=== PATIENT | female | born 1960 | race Caucasian/White ===

== ENCOUNTER 2019-05-18 20:44 | Outpatient (CLI) | payer BC | END 2019-05-19 06:34 | disposition home or self-care (01) | LOC: SLEEP 20:44 | PROVIDERS: ATTEND Nurse Practitioner Family | DX: G47.00 Insomnia, unspecified (principal); G47.30 Sleep apnea, unspecified | CPT/HCPCS: 95811 ==

== ENCOUNTER 2019-07-13 16:47 | Observation (INO) | payer BC ==
[~2019-07-13] VITALS: Ht 157.5 cm; Wt 110.6 kg
[2019-07-13] MEDS ORDERED: ONDANSETRON 4 MG/2 ML (SDV) Z0FRAN IVP ONE (17:00)
[2019-07-13] MEDS ORDERED: NITROGLYCERIN 0.4 MG SL TABS BTL 25'S SL PRN ×2 (17:00→20:30)
[2019-07-13] MEDS ORDERED: ANTACID SUSP 30 ML UDC (MYLANTA) PO ONE (17:00)
[2019-07-13] MEDS ORDERED: ASPIRIN 81 MG CHEW (CHILDREN'S ASA) PO ONE (17:00)
[2019-07-13] MEDS ORDERED: LIDOCAINE 2% VISCOUS 15 ML UDC PO ONE (17:00)
--- NOTE | 2019-07-13 17:09 | ED General ---
General Chief Complaint: Chest Pain Stated Complaint: CHEST PAIN History of Present Illness Date Seen by Provider: Jul 13, 2019 Time Seen by Provider: 17:05 Initial Comments Patient presenting to emergency department for evaluation of chest pain that she says started approximately 10 minutes prior to arrival she was at rest watching TV. She said she did recently eat. She denies any recent activity. She says the pain is in the center of her chest achy radiates towards the back as well as bilateral arms. She says she has some nausea and shortness of breath but no vomiting or diaphoresis. She has a history of A. fib and takes a baby aspirin daily as well as metoprolol. Patient also takes medications for elevated cholesterol. She says she had an echocardiogram 2-3 months ago for monitoring of her A. fib and she said it was normal. She denies any prior cardiac risk stratification such as a stress test or heart catheterization. She did have ablation for her A. fib 2 or 3 years ago however she says she has been having intermittent episodes of A. fib over the past 2-3 months. She appears anxious but nontoxic with normal vital signs. (CARIE HEARD DO) Allergies and Home Medications Allergies Coded Allergies: erythromycin base (Verified Allergy, Unknown, 07/13/19) fentanyl (Verified Allergy, Unknown, 07/13/19) tetracycline (Verified Allergy, Unknown, 07/13/19) Patient Home Medication List Home Medication List Reviewed: Yes (CARIE HEARD DO) Review of Systems Review of Systems Constitutional: no symptoms reported EENTM: no symptoms reported Respiratory: short of breath Cardiovascular: chest pain Gastrointestinal: nausea Genitourinary: no symptoms reported Musculoskeletal: back pain Skin: no symptoms reported Psychiatric/Neurological: No Symptoms Reported (CARIE HEARD DO) All Other Systems Reviewed Negative Unless Noted: Yes (CARIE HEARD DO) Past Ycjxsxx-Vsezna-Ptcrjn Hx Patient Social History Recent Foreign Travel: No (CARIE HEARD DO) Physical Exam Vital Signs Capillary Refill : (CARIE HEARD DO) Height, Weight, BMI Height: '" Weight: lbs. oz. kg; BMI Method: General Appearance: No Apparent Distress, WD/WN, Anxious HEENT: PERRL/EOMI Neck: Supple Respiratory: Lungs Clear, No Respiratory Distress Cardiovascular: Regular Rate, Rhythm Gastrointestinal: Non Tender, Soft Back: Normal Inspection Extremity: No Pedal Edema Neurologic/Psychiatric: Alert, Oriented x3 Skin: Warm/Dry (CARIE HEARD ) Progress/Results/Core Measures Suspected Sepsis SIRS Temperature: Pulse: Respiratory Rate: Laboratory Tests 07/13/19 17:20: White Blood Count 10.1 Blood Pressure / Mean: Laboratory Tests 07/13/19 17:20: Platelet Count 277 ([facility]) Results/Orders Lab Results Laboratory Tests Test 07/13/19 17:20 Range/Units White Blood Count 10.1 4.3-11.0 10^3/uL Red Blood Count 4.62 4.35-5.85 10^6/uL Hemoglobin 13.5 11.5-16.0 G/DL Hematocrit 43 35-52 % Mean Corpuscular Volume 92 80-99 FL Mean Corpuscular Hemoglobin 29 25-34 PG Mean Corpuscular Hemoglobin Concent 32 32-36 G/DL Red Cell Distribution Width 12.7 10.0-14.5 % Platelet Count 277 130-400 10^3/uL Mean Platelet Volume 10.7 H 7.4-10.4 FL Neutrophils (%) (Auto) 60 42-75 % Lymphocytes (%) (Auto) 31 12-44 % Monocytes (%) (Auto) 7 0-12 % Eosinophils (%) (Auto) 2 0-10 % Basophils (%) (Auto) 4 0-10 % Neutrophils # (Auto) 6.0 1.8-7.8 X 10^3 Lymphocytes # (Auto) 3.1 1.0-4.0 X 10^3 Monocytes # (Auto) 0.7 0.0-1.0 X 10^3 Eosinophils # (Auto) 0.2 0.0-0.3 10^3/uL Basophils # (Auto) 0.0 0.0-0.1 10^3/uL D-Dimer 0.27 0.00-0.49 UG/ML Sodium Level 142 135-145 MMOL/L Potassium Level 4.4 3.6-5.0 MMOL/L Chloride Level 106 98-107 MMOL/L Carbon Dioxide Level 27 21-32 MMOL/L Anion Gap 9 5-14 MMOL/L Blood Urea Nitrogen 13 7-18 MG/DL Creatinine 0.83 0.60-1.30 MG/DL Estimat Glomerular Filtration Rate > 60 BUN/Creatinine Ratio 16 Glucose Level 133 H 70-105 MG/DL Calcium Level 9.5 8.5-10.1 MG/DL Corrected Calcium 9.5 8.5-10.1 MG/DL Magnesium Level 2.2 1.6-2.4 MG/DL Total Bilirubin 0.3 0.1-1.0 MG/DL Aspartate Amino Transf (AST/SGOT) 19 5-34 U/L Alanine Aminotransferase (ALT/SGPT) 18 0-55 U/L Alkaline Phosphatase 103 40-136 U/L Troponin I < 0.30 <0.30 NG/ML Pro-B-Type Natriuretic Peptide 850.7 H <75.0 PG/ML Total Protein 6.8 6.4-8.2 GM/DL Albumin 4.0 3.2-4.5 GM/DL Lipase 40 8-78 U/L (ERWIN PATIÑO MD) Medications Given in ED Current Medications Medications Dose Ordered Sig/Reuben Route Start Time Stop Time Status Last Admin Dose Admin Al Hydrox/Mg Hydrox/Simethicone 30 ml ONCE ONCE PO 07/13/19 17:00 07/13/19 17:01 DC 07/13/19 17:23 30 ML Aspirin 324 mg ONCE ONCE PO 07/13/19 17:00 07/13/19 17:01 DC 07/13/19 17:22 243 MG Lidocaine HCl 5 ml ONCE ONCE PO 07/13/19 17:00 07/13/19 17:01 DC 07/13/19 17:23 5 ML Nitroglycerin 0.4 mg NEEDED PRN SL 07/13/19 17:00 07/13/19 17:27 0.4 MG Ondansetron HCl 4 mg ONCE ONCE IVP 07/13/19 17:00 07/13/19 17:01 DC 07/13/19 17:23 4 MG (ERWIN PATIÑO MD) Vital Signs/I&O Capillary Refill : (CARIE HEARD DO) Progress Note : Progress Note Patient with chest pain that is atypical for ACS in my opinion. Her EKG does not show any obvious ischemic changes. I will check a chest x-ray basic lab work treat symptoms and reassess. Will transfer of care at 1800 (CARIE HEARD DO) Progress Note : Time: 18:44 Progress Note Patient was nondiagnostic. First troponin is negative. Symptoms resolved after one nitroglycerin and she remains pain-free. Symptoms are suggestive of angina. I think she needs inpatient workup. I spoke with Dr. Santiago and Dr. Adrian who agreed to admit at [facility]. Low blood pressure precludes any further nitroglycerin or beta blockade. (ERWIN PATIÑO MD) Departure Communication (Admissions) Time/Spoke to Admitting Phy: 18:46 Case was discussed with Dr. Santiago and Dr. Adrian (ERWIN PATIÑO MD) Impression Primary Impression: Chest pain Disposition: 09 ADMITTED INPATIENT Condition: Improved Admissions Decision to Admit Reason: Admit from ER (General) Decision to Admit/Date: Jul 13, 2019 Time/Decision to Admit Time: 18:46 (ERWIN PATIÑO MD) Departure-Patient Inst. Referrals: ANUP SANON DO (PCP/Family) Primary Care Physician CARIE HEARD DO Jul 13, 2019 17:09 POSTAYLORERWIN MD Jul 13, 2019 18:47 POS
[2019-07-13 17:32] LABS: WHITE BLOOD COUNT 10.1 10^3/uL (4.3-11.0)
[2019-07-13 17:33] LABS: BASOPHILS % (AUTO) 4 % (0-10); EOSINOPHILS # (AUTO) 0.2 10^3/uL (0.0-0.3); EOSINOPHILS % (AUTO) 2 % (0-10); HEMATOCRIT 43 % (35-52); HEMOGLOBIN 13.5 G/DL (11.5-16.0); LYMPHOCYTES # (AUTO) 3.1 X 10^3 (1.0-4.0); LYMPHOCYTES % (AUTO) 31 % (12-44); MEAN CORPUSCULAR HEMOGLOBIN 29 PG (25-34); MEAN CORPUSCULAR HGB CONC 32 G/DL (32-36); MEAN CORPUSCULAR VOLUME 92 FL (80-99); MEAN PLATELET VOLUME 10.7 FL (7.4-10.4); MONOCYTES # (AUTO) 0.7 X 10^3 (0.0-1.0); MONOCYTES % (AUTO) 7 % (0-12); NEUTROPHILS % (AUTO) 60 % (42-75); PLATELET COUNT 277 10^3/uL (130-400); RED CELL DISTRIBUTION WIDTH 12.7 % (10.0-14.5)
--- NOTE | 2019-07-13 17:49 | Diagnostic Imaging Report ---
Patient History: Chest pain.. Technique: Single frontal view of the chest Comparison: None FINDINGS: The lung volumes are normal. No focal consolidation is seen. No large pleural effusion or pneumothorax is seen. The cardiomediastinal silhouette is normal in size and contour. No acute osseous abnormality is seen. IMPRESSION: 1. No acute pleuroparenchymal process. Dictated by: Dictated on workstation # [id number]
[2019-07-13 18:04] LABS: BUN/CREATININE RATIO 16; CALCIUM 9.5 MG/DL (8.5-10.1); CARBON DIOXIDE 27 MMOL/L (21-32); CHLORIDE 106 MMOL/L (98-107); CREATININE SERUM 0.83 MG/DL (0.60-1.30); GFR ESTIMATED > 60; GLUCOSE 133 MG/DL (70-105); MAGNESIUM 2.2 MG/DL (1.6-2.4); POTASSIUM 4.4 MMOL/L (3.6-5.0); SODIUM 142 MMOL/L (135-145)
[2019-07-13 18:05] LABS: ALANINE AMINOTRANSFERASE 18 U/L (0-55); ALKALINE PHOSPHATASE 103 U/L (40-136); BILIRUBIN,TOTAL 0.3 MG/DL (0.1-1.0); LIPASE 40 U/L (8-78); TOTAL PROTEIN 6.8 GM/DL (6.4-8.2)
[2019-07-13] MEDS: NS IV 500 ML 500 ML IV SCH (18:07)
--- NOTE | 2019-07-13 18:10 | NUR ---
Reported blood pressure in 80's systolic to Dr Hooper. Orders received for 500 ml fluid bolus of NS.
--- NOTE | 2019-07-13 18:49 | NUR ---
Called supervisor paper testing to request bed assignment at this time.
--- NOTE | 2019-07-13 19:29 | NUR ---
Reported BP of 85/[address] Hooper at this time. No new orders received.
[2019-07-13] MEDS ORDERED: ONDANSETRON 4 MG/2 ML (SDV) Z0FRAN IVP PRN (20:30)
[2019-07-13] MEDS ORDERED: PATIENT MAY USE OWN MEDS, ALL PO SCH (20:30)
[2019-07-13 20:32] VITALS: BP 90/63
[2019-07-13 20:45] VITALS: BP 110/73
[2019-07-13] MEDS ORDERED: ACETAMINOPHEN 325 MG TABLET PO PRN (20:45)
[2019-07-13] MEDS ORDERED: BENZONATATE 100 MG (TESSALON) CAPSULE PO PRN (20:45)
[2019-07-13] MEDS ORDERED: ONDANSETRON 4 MG/2 ML (SDV) Z0FRAN IV PRN (20:45)
[2019-07-13] MEDS ORDERED: MILK OF MAGNESIA 400 MG/5 ML 30 ML UDC PO PRN (20:45)
[2019-07-13] MEDS ORDERED: ANTACID SUSP 30 ML UDC (MYLANTA) PO PRN (20:45)
[2019-07-13] MEDS ORDERED: MELATONIN 3 MG TABLET PO PRN (20:45)
[2019-07-13 21:00] VITALS: BP 98/51
[2019-07-13 21:15] VITALS: BP 112/68
[2019-07-13 22:00] VITALS: BP 102/45
[2019-07-13 23:00] VITALS: BP 124/70
[2019-07-14] VITALS (18 sets, daily range): BP systolic 84–139; BP diastolic 47–91
[2019-07-14] MEDS: NS IV 500 ML 500 ML IV SCH (02:28)
[2019-07-14 03:42] LABS: CARDIAC PROFILE 2 0.519 NG/ML (<0.028)
[2019-07-14] MEDS: ASPIRIN E.C. 81 MG (ECOTRIN) TAB PO SCH (09:00)
--- NOTE | 2019-07-14 09:39 | History & Physical-Hospitalist ---
History of Present Illness HPI/Chief Complaint This is a 59-year-old white female with a history of atrial fibrillation and ablation in the past. She was doing fairly well and was sitting in her chair watching TV when she began having chest pain that radiated to both shoulders up and to her right jaw. She then presented to the emergency room in [place] where she was given a GI cocktail without resolution and then some nitroglycerin which resolved the pain. She was transferred here to [facility] for further evaluation. Overnight she has been pain free however her troponin has increased to 0.519. EKG showed a sinus bradycardia with a rate in the 30s without ST segment changes. She had been having a little bit of trouble more recently with the atrial fibrillation. She denies having had any exertional chest pain or symptoms ever similar to the one she had last night. Source: patient Exam Limitations: no limitations Date Seen 07/14/19 Time Seen by a Provider: 08:45 Attending Physician Ting Akins Ricky D DO Referring Physician Date of Admission Jul 13, 2019 at 19:01 Home Medications & Allergies Home Medications Reviewed patient Home Medication Reconciliation performed by pharmacy medication reconciliations marine propulsion technician and/or nursing. Patients Allergies have been reviewed. Allergies Allergies Coded Allergies erythromycin base (Verified Allergy, Unknown, 07/13/19) fentanyl (Verified Allergy, Unknown, 07/13/19) tetracycline (Verified Allergy, Unknown, 07/13/19) Past Qkmdgoe-Hoalib-Runwgt Hx Past Med/Social Hx: Reviewed Nursing Past Med/Soc Hx Patient Social History Marrital Status: Employed/Student: employed Alcohol Use: Denies Use Recreational Drug Use: No Smoking Status: Never a Smoker 2nd Hand Smoke Exposure: No Recent Foreign Travel: No Contact w/other who traveled: No Recent Hopitalizations: No Recent Infectious Disease Expo: No Seasonal Allergies Seasonal Allergies: No Past Medical History Surgeries: Section, Gallbladder Respiratory: Sleep Apnea Cardiac: Atrial Fibrillation, High Cholesterol, Hypotension Endocrine: Hypothyroidsim History of Blood Disorders: No Adverse Reaction to Blood Mcnulty: No Family History Heart Disease Review of Systems Constitutional: no symptoms reported EENTM: no symptoms reported Respiratory: no symptoms reported Cardiovascular: chest pain, palpitations Gastrointestinal: no symptoms reported Genitourinary: no symptoms reported Musculoskeletal: no symptoms reported Skin: no symptoms reported Psychiatric/Neurological: No Symptoms Reported Physical Exam Physical Exam Vital Signs Vital Signs - First Documented 07/13/19 07/13/19 16:50 20:32 Temp 36.4 Pulse 56 Resp 14 B/P (MAP) 120/72 (88) Pulse Ox 98 O2 Delivery Room Air Capillary Refill : Less Than 3 Seconds Height, Weight, BMI Height: '" Weight: lbs. oz. kg; 46.11 BMI Method: General Appearance: No Apparent Distress, WD/WN, Obese Eyes: Bilateral Eye Normal Inspection HEENT: PERRL/EOMI, Normal ENT Inspection, Pharynx Normal Neck: Full Range of Motion, Normal Inspection, Non Tender, Supple Respiratory: Chest Non Tender, Lungs Clear, Normal Breath Sounds, No Accessory Muscle Use, No Respiratory Distress Cardiovascular: Regular Rate, Rhythm, No Edema, No Gallop, No JVD, No Murmur, Normal Peripheral Pulses, Bradycardia Gastrointestinal: Normal Bowel Sounds, No Organomegaly, No Pulsatile Mass, Soft Rectal: Deferred Back: Normal Inspection, No CVA Tenderness, No Vertebral Tenderness Extremity: Normal Capillary Refill, Normal Inspection, Normal Range of Motion, Non Tender, No Calf Tenderness Neurologic/Psychiatric: Alert, Oriented x3, No Motor/Sensory Deficits, Normal Mood/Affect Skin: Normal Color, Warm/Dry Results Results/Procedures Labs Laboratory Tests 07/13/19 17:20 Patient resulted labs reviewed. Imaging: Reviewed Imaging Report Assessment/Plan Admission Diagnosis Non-ST segment elevation MS Atrial fibrillation in sinus Sinus bradycardia Hyperlipidemia Hypothyroidism Obstructive sleep apnea on CPAP Plan per cardiology most likely will need heart catheter. Admission Status: Observation Clinical Quality Measures AMI/AHF: ASA po Prior to arrival: Yes (takes 81 mg aspirin daily) DVT/VTE Risk/Contraindication: Risk Factor Score Per Nursin RFS Level Per Nursing on Admit: 4+=Very High Copy Copies To 1: ANUP SANON KATHLEEN M MD Jul 14, 2019 09:39 POS
--- NOTE | 2019-07-14 10:13 | Consultation-Cardiology ---
HPI-Cardiology Cardiology Consultation: Date of Consultation 07/14/19 Time Seen by a Provider: 09:50 Date of Admission Attending Physician Trish Santiago MD Admitting Physician Dmitriy Atkinson DO Consulting Physician AMANDA RUIZ MD, MA, FACP, FACC, FSCAI, CCDS HPI: Chief Complaint: CC: Chest pain HPI 59 yo woman with chest discomfort: 1st and only occurrence yesterday, lasted 10 min, resolved by the time of presentation to ER, mid-chest, heavy pressure, radiation to shoulders and neck, w/o palp or syncope, w/o aggravating or relieving factors, mod-sev in intensity at its worst No shortness of breath. No palp or syncope. No leg swelling. No fever or chills Review of Systems-Cardiology Review of Systems Constitutional: No malaise, No tiredness, No weight loss Eyes: No vision change Ears/Nose/Throat: No ear discharge, No nasal drainage, No recent hearing loss Respiratory: As described under HPI Cardiovascular: As described under HPI Gastrointestinal: No diarrhea, No vomiting Genitourinary: No dysuria, No hematuria, No urine frequency changes Musculoskeletal: No back pain, No joint pain Skin: No rash, No ulcerations Psychiatric/Neurological: No seizure, No focal weakness, No syncope Hematologic: No bleeding abnormalities All Other Systems Reviewed Negative Unless Noted: Yes WBA-Oswbur-Apxyjq Hx Patient Social History Marrital Status: Employed/Student: employed Alcohol Use: Denies Use Recreational Drug Use: No Smoking Status: Never a Smoker 2nd Hand Smoke Exposure: No Recent Foreign Travel: No Recent Infectious Disease Expo: No Past Medical History PMH As described under Assessment. Family Medical History Family Medical History: No fam h/o early CAD or SCD Allergies and Home Medications Allergies Coded Allergies: erythromycin base (Verified Allergy, Unknown, 07/13/19) fentanyl (Verified Allergy, Unknown, 07/13/19) tetracycline (Verified Allergy, Unknown, 07/13/19) Patient Home Medication List Home Medication List Reviewed: Yes Physical Exam-Cardiology Physical Exam Vital Signs/I&O 07/13/19 07/14/19 07/14/19 07/14/19 23:00 00:00 00:00 00:55 Temp 36.1 Pulse 52 52 Resp 18 B/P (MAP) 124/70 (88) 115/68 (84) 111/73 (86) Pulse Ox 100 O2 Delivery Room Air Room Air 07/14/19 07/14/19 07/14/19 07/14/19 01:00 03:11 04:00 07:00 Temp 36.2 Pulse 52 40 48 Resp 18 B/P (MAP) 84/47 (59) Pulse Ox 100 O2 Delivery Room Air Room Air 07/14/19 00:00 Intake Total 1050 ml Output Total 400 ml Balance 650 ml Capillary Refill : Less Than 3 Seconds Constitutional: AAO x 3, well-developed, well-nourished HEENT: EOMI, hearing is well preserved; No xanthelasmas are seen Neck: carotid pulses are 2 + bilaterally, with good upstrokes Cardiovascular: regular rate-rhythm, S1 and S2, systolic murmur (faint TAMMY at card base) Gastrointestinal: No tender; soft; No guarding, No rebound; audible bowel sounds Extremities: No clubbing, No cyanosis, No significant edema Neurologic/Psychiatric: oriented x 3, other (moves all limbs equally) Skin: No rash, No ulcerations Data Review Labs Laboratory Tests 07/13/19 17:20: White Blood Count 10.1, Red Blood Count 4.62, Hemoglobin 13.5, Hematocrit 43, Mean Corpuscular Volume 92, Mean Corpuscular Hemoglobin 29, Mean Corpuscular Hemoglobin Concent 32, Red Cell Distribution Width 12.7, Platelet Count 277, Mean Platelet Volume 10.7H, Neutrophils (%) (Auto) 60, Lymphocytes (%) (Auto) 31, Monocytes (%) (Auto) 7, Eosinophils (%) (Auto) 2, Basophils (%) (Auto) 4, Neutrophils # (Auto) 6.0, Lymphocytes # (Auto) 3.1, Monocytes # (Auto) 0.7, Eosinophils # (Auto) 0.2, Basophils # (Auto) 0.0, D-Dimer 0.27, Sodium Level 142 , Potassium Level 4.4, Chloride Level 106, Carbon Dioxide Level 27, Anion Gap 9, Blood Urea Nitrogen 13, Creatinine 0.83, Estimat Glomerular Filtration Rate > 60, BUN/Creatinine Ratio 16, Glucose Level 133H, Calcium Level 9.5, Corrected Calcium 9.5, Magnesium Level 2.2, Total Bilirubin 0.3, Aspartate Amino Transf (AST/SGOT) 19, Alanine Aminotransferase (ALT/SGPT) 18, Alkaline Phosphatase 103, Troponin I < 0.30, Pro-B-Type Natriuretic Peptide 850.7H, Total Protein 6.8, Albumin 4.0, Lipase 40 07/13/19 20:45: Troponin I 0.045H 07/14/19 02:42: Troponin I 0.519*H, Triglycerides Level 60, Cholesterol Level 130, LDL Cholesterol Direct 78, VLDL Cholesterol 12, HDL Cholesterol 42 Laboratory Tests 07/13/19 17:20 A/P-Cardiology Assessment/Admission Diagnosis Ac NSTEMI PAF treated with ablation at [facility] (Dr Love) several years ago Chronic hypothyroidism of undetermined etiology Obesity with BMI approx 46 NAYELI, treated with CPAP Discussion and Recomendations * Card cath recommended, with possible ad hoc PCI. I reviewed in detail the rationale, procedure, risks, benefits, potential complications, and alternatives of these procedures with her and her . She understands and provides informed consent. Arrangements are being made Clinical Quality Measures AMI/AHF: ASA po Prior to arrival: Yes (takes 81 mg aspirin daily) DVT/VTE Risk/Contraindication: Risk Factor Score Per Nursin RFS Level Per Nursing on Admit: 4+=Very High AMANDA RUIZ MD FACP FAC CCDS Jul 14, 2019 10:13 POS
[2019-07-14] MEDS ORDERED: HEParin (CATH LAB) 2,000 ML IV ONE (10:37)
[2019-07-14] MEDS ORDERED: LIDOCAINE 1% INJ 20 ML 20 ML VIAL ONE (10:37)
[2019-07-14] MEDS ORDERED: diphenhydrAMINE 50 MG/ML INJ (BENADRYL) ONE (10:48)
[2019-07-14] MEDS ORDERED: MIDAZOLAM 5 MG/5 ML (VERSED) VIAL ONE (10:48)
[2019-07-14] MEDS ORDERED: NS IV 1000 ML 1,000 ML ONE (10:48)
[2019-07-14] MEDS: NS IV 1000 ML 1,000 ML IV SCH ×2 (11:00→23:18)
--- NOTE | 2019-07-14 11:00 | NUR ---
PATIENT TO OCCUPATIONAL HEALTH SPECIALIST VIA BED, ACCOMPANIED BY STAFF AND .
--- NOTE | 2019-07-14 11:35 | Cardiac Procedure Note-CS/ASA ---
Pre-Procedure Note Pre-Op Procedure Note H&P Reviewed The H&P was reviewed, patient examined and no changes noted. Date H&P Reviewed: Jul 14, 2019 Time H&P Reviewed: 11:35 Conscious Sedation Pre-Proced Time 11:35 ASA Score 3 For ASA 3 and 4: Consider anesthesia and medical clearance. Also, for patients with a history of failed moderate sedation consider anesthesia. Airway Lungs Heart ASA score ASA 1: a normal healthy patient ASA 2: a patient with a mild systemic disease (mid diabetes, controlled hypertension, obesity ASA 3: a patient with a severe systemic disease that limits activity (angina, COPD, prior Myocardial infarction) ASA 4: a patient with an incapacitating disease that is a constant threat to life (CHF, renal failure) ASA 5: a moribund patient not expected to survive 24 hrs. (ruptured aneurysm) ASA 6: a declared brain- patient whose organs are being harvested. For emergent operations, add the letter E after the classification Mallampati Classification Grade 2 Sedation Plan Analgesia, Amnesia, Plan communicated to team members, Discussed options with patient/fam, Discussed risks with patient/fam The patient is an appropriate candidate to undergo the planned procedure, sedation, and anesthesia. The patient immediately re-assessed prior to indication. AMANDA RUIZ MD FACP FAC CCDS Jul 14, 2019 11:35 POS
[2019-07-14] MEDS ORDERED: NS IV 1000 ML 1,000 ML IV SCH (11:59)
[2019-07-14] MEDS ORDERED: PATIENT MAY USE OWN MEDS, ALL PO SCH (12:00)
--- NOTE | 2019-07-14 12:27 | CARDIAC CATHETERIZATION ---
DATE OF SERVICE: 07/14/2019 CARDIAC CATHETERIZATION INDICATIONS: The patient is a 59-year-old lady with coronary artery disease risk factors, who presented with chest pain. Initial troponin was negative. Subsequent troponins were elevated, indicating non-ST elevation myocardial infarction. Cardiac catheterization was carried out after having obtained informed consent. DESCRIPTION OF PROCEDURE: She was brought to the cardiac catheterization laboratory in a fasting state. Right groin was prepared and draped in the usual sterile fashion. Lidocaine 1% was used for local anesthesia. Modified Seldinger technique was used to advance a 5-[place] sheath in right femoral artery, 5-[place] JL4 catheter for left coronary angiography, 5-[place] JR4 catheter for right coronary angiography, 5-[place] pigtail catheter was used for left heart catheterization and left ventricular angiography. Pigtail catheter was removed. Angiography of the right femoral artery had been carried out through the sheath at the time of initiation of the sheath. At the end of the procedure, Mynx was used to achieve hemostasis following sheath removal. She tolerated the procedure well. HEMODYNAMICS: Left ventricular end-diastolic pressure following coronary angiography was 13 mmHg. There was no significant pressure gradient on pullback across the aortic valve. Ascending aortic pressure was 120/58 with a mean 83 mmHg. CORONARY ANGIOGRAPHY: Left main coronary artery is free of significant disease. Left anterior descending, left circumflex, right coronary arteries have mild plaques. There is no significant obstructive disease. Right coronary artery is dominant. LEFT VENTRICULAR ANGIOGRAPHY: Left ventricular angiography was carried out in right anterior oblique projection. No distinct regional wall motion is seen. Left ventricular ejection fraction estimated to be 50-55%. CONCLUSIONS: 1. Angiographically minimal coronary artery disease. 2. Normal global left ventricular systolic function with ejection fraction of 50-55%. 3. Left ventricular end-diastolic pressure at the top limit of normal. DISCUSSION AND RECOMMENDATIONS: Based on results of the study, it appears appropriate to continue a conservative approach. Risk factor modification has been reviewed. We advised the continuation of low-dose aspirin and a beta iam. Job ID: [id number] DocumentID: [id number] Dictated Date: 07/14/2019 11:56:37 Teacher Adult Education Date: 07/14/2019 12:27:10 Dictated By: AMANDA RUIZ MD, MA, FACP, FACC, MTDD
--- NOTE | 2019-07-14 13:41 | NUR ---
ARRIVED FROM AIRCRAFT INSTRUMENT ENGINEER, VIA BED, ACCOMPANIED BY STAFF AND . [employer]X DRESSING DRY AND INTACT NO SWELLING AT SITE, SANDBAG IN PLACE.
--- NOTE | 2019-07-15 00:22 | NUR ---
Dr. Santiago notified of complaints of pain rated at 5:10 to right groin area unrelieved by Tylenol. New order rec for Hydrocodone 5mg/325mg q 4 hr prn pain.
[2019-07-15] MEDS ORDERED: HYDROcodone/APAP 5 MG/325 MG (LORTAB) TAB ONE (00:23)
[2019-07-15] MEDS ORDERED: HYDROcodone/APAP 5 MG/325 MG (LORTAB) TAB PO PRN (00:30)
[2019-07-15 03:15] VITALS: BP 132/67
[2019-07-15 04:03] LABS: HEMOGLOBIN 12.9 G/DL (11.5-16.0); MEAN PLATELET VOLUME 11.3 FL (7.4-10.4); RED CELL DISTRIBUTION WIDTH 12.9 % (10.0-14.5); WHITE BLOOD COUNT 8.8 10^3/uL (4.3-11.0)
[2019-07-15 04:24] LABS: BUN/CREATININE RATIO 12; CALCIUM 9.2 MG/DL (8.5-10.1); CARBON DIOXIDE 23 MMOL/L (21-32); CHLORIDE 108 MMOL/L (98-107); CREATININE SERUM 0.78 MG/DL (0.60-1.30); GFR ESTIMATED > 60; GLUCOSE 84 MG/DL (70-105); POTASSIUM 4.3 MMOL/L (3.6-5.0); SODIUM 143 MMOL/L (135-145)
[2019-07-15 08:00] VITALS: BP 99/59
[2019-07-15] MEDS: ASPIRIN E.C. 81 MG (ECOTRIN) TAB PO SCH (09:23)
--- NOTE | 2019-07-15 11:45 | Discharge Summary ---
Discharge Summary Hospital Course Was the Problem List Reviewed?: Yes Problems/Dx: (1) Chest pain Status: Acute Qualifiers: Hospital Course Date of Admission: Jul 13, 2019 at 19:01 Admission Diagnosis : Family Physician/Provider: Dmitriy Atkinson DO Date of Discharge: 07/15/19 Discharge Diagnosis: [ ] Non-ST segment elevation [place] secondary to small vessel disease Paroxysmal atrial fibrillation in sinus Hyperlipidemia Hypothyroidism Hospital Course: [This is a 59-year-old white female who is admitted for chest pain. Troponins became positive. EKG showed no ST segment elevation. The patient was taken to heart catheter by Dr. Hsu which showed nonobstructive small vessel disease but no lesions that were amenable to prevention. Patient had had an echocardiogram 1 month ago so repeat was not done. Because of the history of paroxysmal atrial fibrillation that is continued it is recommended that the patient be discharged on Eliquis twice a day, aspirin, statin, beta iam and her thyroid medication as before. ] It is recommended that the patient follow-up with her meal room hand in the next week or 2 and we will send a copy of her heart catheter record. Labs and Pending Lab Test: Laboratory Tests 07/15/19 02:58: White Blood Count 8.8, Red Blood Count 4.45, Hemoglobin 12.9, Hematocrit 41, Mean Corpuscular Volume 92, Mean Corpuscular Hemoglobin 29, Mean Corpuscular Hemoglobin Concent 32, Red Cell Distribution Width 12.9, Platelet Count 227, Mean Platelet Volume 11.3H, Sodium Level 143, Potassium Level 4.3, Chloride Level 108H, Carbon Dioxide Level 23, Anion Gap 12, Blood Urea Nitrogen 9, Creatinine 0.78, Estimat Glomerular Filtration Rate > 60, BUN/Creatinine Ratio 12, Glucose Level 84, Calcium Level 9.2 Assessment/Pt Instructions Non-ST segment elevation [place] secondary to small vessel disease Paroxysmal atrial fibrillation Hypertension Hypothyroidism Discharge Planning: >30 minutes discharge planning Discharge Instructions Discharge Diet: Low Fat/Low Cholesterol Activity as Tolerated: Yes Consultations Dr. Hsu Discharge Physical Examination Vital Signs Vital Signs Date Time Temp Pulse Resp B/P (MAP) Pulse Ox O2 Delivery O2 Flow Rate FiO2 07/15/19 08:00 36.3 72 20 99/59 (72) 98 Room Air General Appearance: No Apparent Distress, WD/WN HEENT: PERRL/EOMI, Normal ENT Inspection, Pharynx Normal Respiratory: Chest Non Tender, Lungs Clear, Normal Breath Sounds, No Accessory Muscle Use, No Respiratory Distress Cardiovascular: Regular Rate, Rhythm, No Gallop, No Murmur, Normal Peripheral Pulses Gastrointestinal: Normal Bowel Sounds, No Pulsatile Mass, Non Tender, Soft Extremity: Normal Capillary Refill, Non Tender, No Calf Tenderness Skin: Normal Color, Warm/Dry Neurologic/Psychiatric: Alert, Oriented x3, No Motor/Sensory Deficits, Normal Mood/Affect, actuarial analyst II-XII Norm as Tested Allergies: Coded Allergies: erythromycin base (Verified Allergy, Unknown, 07/13/19) fentanyl (Verified Allergy, Unknown, 07/13/19) tetracycline (Verified Allergy, Unknown, 07/13/19) Copy Copies To 1: DMITRIY ATKINSON DO Discharge Summary Date of Admission Jul 13, 2019 at 19:01 Date of Discharge Discharge Date: Jul 15, 2019 Discharge Time: 1200 Admission Diagnosis Non-ST segment elevation [place] Atrial fibrillation in sinus Sinus bradycardia Hyperlipidemia Hypothyroidism Obstructive sleep apnea on CPAP Plan per cardiology most likely will need heart catheter. Clinical Quality Measures AMI/AHF: ASA po Prior to arrival: Yes (takes 81 mg aspirin daily) DVT/VTE Risk/Contraindication: Risk Factor Score Per Nursin RFS Level Per Nursing on Admit: 4+=Very High GÉNESIS FITZGERALD MD Jul 15, 2019 11:44 POS
[2019-07-15] MEDS ORDERED: SIMV20TA3 PO (12:00)
[2019-07-15] MEDS ORDERED: FLUC200T5 PO (12:00)
[2019-07-15] MEDS ORDERED: LEVO137T32 PO (12:00)
[2019-07-15] MEDS ORDERED: METO-387 PO (12:00)
[2019-07-15] MEDS ORDERED: ASPI-999 PO (12:00)
[2019-07-15] MEDS ORDERED: APIX5TAB PO (12:09)
--- NOTE | 2019-07-15 12:11 | Progress Note - Cardiology ---
Cardiology SOAP Progress Note Subjective: No cp or palp or syncope or shortness of breath Mild soreness at site of access in R groin No leg discomfort or discoloration Wishes to go home Objective: I&O/Vital Signs 07/15/19 07/15/19 07/15/19 07/15/19 01:00 03:15 03:16 07:00 Temp 36.3 Pulse 48 45 56 Resp 16 B/P (MAP) 132/67 (88) Pulse Ox 97 O2 Delivery Room Air Room Air 07/15/19 07/15/19 07/15/19 07/15/19 08:00 08:00 08:00 12:04 Temp 36.3 Pulse 72 Resp 20 B/P (MAP) 99/59 (72) Pulse Ox 98 O2 Delivery Room Air Room Air Room Air Room Air 07/14/19 23:59 Intake Total 720 ml Output Total 1200 ml Balance -480 ml Condition: DP/PT pulses palpable Constitutional: AAO x 3, well-developed, well-nourished Cardiovascular: regular rate-rhythm, S1 and S2, systolic murmur (faint TAMMY at card base) Gastrointestional: No tender; soft; No guarding, No rebound; audible bowel sounds Extremities: No clubbing, No cyanosis, No significant edema Neurologic/Psychiatric: oriented x 3, other (moves all limbs equally) Skin: No rash, No ulcerations Results/Procedures: Labs Laboratory Tests 07/15/19 02:58: White Blood Count 8.8, Red Blood Count 4.45, Hemoglobin 12.9, Hematocrit 41, Mean Corpuscular Volume 92, Mean Corpuscular Hemoglobin 29, Mean Corpuscular Hemoglobin Concent 32, Red Cell Distribution Width 12.9, Platelet Count 227, Mean Platelet Volume 11.3H, Sodium Level 143, Potassium Level 4.3, Chloride Level 108H, Carbon Dioxide Level 23, Anion Gap 12, Blood Urea Nitrogen 9, Creatinine 0.78, Estimat Glomerular Filtration Rate > 60, BUN/Creatinine Ratio 12, Glucose Level 84, Calcium Level 9.2 Laboratory Tests 07/13/19 17:20 07/15/19 02:58 A/P: Assessment: Small acute NSTEMI on 07/13/19 Card cath on 07/14/19: Angiographically minimal coronary artery disease, normal global left ventricular systolic function with ejection fraction of 50-55%, left ventricular end-diastolic pressure at the top limit of normal. PAF treated with ablation at [facility] (Dr Love) several years ago. Pt reports recent recurrence of PAF Chronic hypothyroidism of undetermined etiology Obesity with BMI approx 46 NAYELI, treated with CPAP Plan: * Continue ASA * Add statin, given MO and minimal CAD * Add apixaban, given h/o recurrence of PAF in the recent past * I had a detailed discussion of findings and plan with her and her and answered questions * I discussed her case with Dr Akins on the phone * Advised ER for any recurrence of symptoms or new symptoms * Advised f/u with her mental hygiene consultant in [place] within this week Clinical Quality Measures AMI/AHF: ASA po Prior to arrival: Yes (takes 81 mg aspirin daily) AMNADA RUIZ MD FACP FAC CCDS Jul 15, 2019 12:11 POS
--- NOTE | 2019-07-15 12:15 | Discharge Summary ---
Discharge Summary Hospital Course Was the Problem List Reviewed?: Yes Problems/Dx: (1) Chest pain Status: Acute Qualifiers: Hospital Course Date of Admission: Jul 13, 2019 at 19:01 Admission Diagnosis : Family Physician/Provider: Dmitriy Atkinson DO Date of Discharge: 07/15/19 Discharge Diagnosis: Non-ST segment elevation [place] secondary to small vessel disease Paroxysmal atrial fibrillation Hyperlipidemia Hypothyroidism ] Hospital Course: Patient was admitted with chest pain. Serial cardiac enzymes showed a positive troponin. EKG showed a Q in lead [address] segment changes. The patient was taken to heart catheter where it was found that she had small vessel disease not amenable to intervention. The patient stayed in sinus rhythm throughout the hospitalization. At the time of discharge she was stable and anxious to go. She is instructed to start on requests with a prescription being transmitted to her pharmacy in [place]. She is to follow-up with Dr. Sevilla her drum cleaner. [ ] Labs and Pending Lab Test: Laboratory Tests 07/15/19 02:58: White Blood Count 8.8, Red Blood Count 4.45, Hemoglobin 12.9, Hematocrit 41, Mean Corpuscular Volume 92, Mean Corpuscular Hemoglobin 29, Mean Corpuscular Hemoglobin Concent 32, Red Cell Distribution Width 12.9, Platelet Count 227, Mean Platelet Volume 11.3H, Sodium Level 143, Potassium Level 4.3, Chloride Level 108H, Carbon Dioxide Level 23, Anion Gap 12, Blood Urea Nitrogen 9, Creatinine 0.78, Estimat Glomerular Filtration Rate > 60, BUN/Creatinine Ratio 12, Glucose Level 84, Calcium Level 9.2 Home Meds Active Eliquis (Apixaban) 5 Mg Tablet 5 Mg PO BID 30 Days Reported Synthroid (Levothyroxine Sodium) 137 Mcg Tablet 137 Mcg PO DAILY Simvastatin 20 Mg Tablet 20 Mg PO DAILY Metoprolol Succinate 25 Mg Tab.er.24h 25 Mg PO BID Aspirin 81 Mg Tab.chew 81 Mg PO DAILY Fluconazole 200 Mg Tablet 1 Tab PO [id number] Assessment/Pt Instructions Non-ST segment elevation secondary to small vessel disease Paroxysmal atrial fibrillation in sinus Hypothyroidism Hyperlipidemia Discharge Planning: >30 minutes discharge planning Discharge Instructions Discharge Diet: Low Fat/Low Cholesterol Activity as Tolerated: Yes Discharge Physical Examination Vital Signs Vital Signs Date Time Temp Pulse Resp B/P (MAP) Pulse Ox O2 Delivery O2 Flow Rate FiO2 07/15/19 12:04 Room Air 07/15/19 08:00 36.3 72 20 99/59 (72 98 General Appearance: No Apparent Distress, WD/WN HEENT: TMs Normal, Normal ENT Inspection, Pharynx Normal Respiratory: Chest Non Tender, Lungs Clear, Normal Breath Sounds, No Accessory Muscle Use, No Respiratory Distress Cardiovascular: Regular Rate, Rhythm, No Edema, No Gallop, No JVD, No Murmur, Normal Peripheral Pulses Gastrointestinal: Normal Bowel Sounds, No Organomegaly, No Pulsatile Mass, Non Tender, Soft Extremity: Normal Capillary Refill, Normal Inspection, Normal Range of Motion, Non Tender, No Calf Tenderness Skin: Normal Color, Warm/Dry Neurologic/Psychiatric: Alert, Oriented x3, No Motor/Sensory Deficits, Normal Mood/Affect, 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 Discharge Diagnosis (1) Chest pain Status: Acute Qualifiers: Clinical Quality Measures AMI/AHF: ASA po Prior to arrival: Yes (takes 81 mg aspirin daily) DVT/VTE Risk/Contraindication: Risk Factor Score Per Nursin RFS Level Per Nursing on Admit: 4+=Very High GÉNESIS FITZGERALD MD Jul 15, 2019 12:15 POS
[2019-07-15 12:20] VITALS: BP 118/68
== END 2019-07-15 11:34 | disposition home or self-care (01) ==
LOC: EDUNIT# 16:47 → ER FS 16:48 → UNDOADMOB 19:01 → CSD 19:01 → UNDODISOB 07-15 15:04
PROVIDERS: ADMIT Family Medicine; ATTEND Family Medicine
DX: I21.4 Non-ST elevation (NSTEMI) myocardial infarction (principal); I48.0 Paroxysmal atrial fibrillation; E78.5 Hyperlipidemia, unspecified; E03.9 Hypothyroidism, unspecified; G47.33 Obstructive sleep apnea (adult) (pediatric); E78.00 Pure hypercholesterolemia, unspecified; I95.9 Hypotension, unspecified; E66.9 Obesity, unspecified; Z68.41 Body mass index [BMI] 40.0-44.9, adult; Z79.82 Long term (current) use of aspirin; Z88.1 Allergy status to other antibiotic agents; Z88.8 Allergy status to other drugs, medicaments and biological substances; Z90.49 Acquired absence of other specified parts of digestive tract
CPT/HCPCS: 36415; 71045; 80048; 80053; 80061; 83690; 83735; 83880; 84484; 85025; 85027; 85379; 93005; 93458; 96361; 96374

== ENCOUNTER 2022-04-22 09:45 | Observation (INO) | payer BC ==
[~2022-04-22] VITALS: Ht 157 cm; Wt 100.6 kg
[~2022-04-22 09:45] MED LIST: APIX5TAB PO; ASPI-999 PO; FLUC200T9 PO; LEVO137T32 PO; MTP25TSR PO; SIMV20TA26 PO
--- NOTE | 2022-04-22 10:11 | ED Cardiac General ---
History of Present Illness General Chief Complaint: Cardiac/General Problems Stated Complaint: DIZZINESS; LOW BP Source: patient Exam Limitations: no limitations History of Present Illness Date Seen by Provider: Apr 22, 2022 Time Seen by Provider: 09:50 Initial Comments 61-year-old female with past medical history of paroxysmal A. fib on metoprolol but no blood thinners, hypertension, hyperlipidemia, hypothyroidism coming in as a referral from urgent care due to low blood pressure. The patient states she typically can feel like she is in atrial fibrillation if she starts feeling lightheaded and dizzy. She started feeling this way last night and knew she was in A. fib. Her heart rate was high at that time. This has been going off and on for the past couple of months. She takes metoprolol 12 and half milligrams twice a day. Has not been on blood thinners for quite some time. Follows with machine adjuster helper in [place] and has had an A. fib ablation in the past. Has been taking all of her medicines as prescribed, but has not taken her metoprolol yet this morning. At the urgent care her heart rate was in the low 100s in A. fib and her blood pressure was reportedly 100/50. She denies any chest pain, shor tness of breath, abdominal pain, nausea, vomiting, diarrhea, weakness, numbness, headache, vision changes, dysuria, fever, infectious symptoms, or any other concerns. She says she is potentially been drinking slightly less than usual. Does not drink alcohol. Denies any history of DVT or PE. Is otherwise denying any other acute complaints Allergies and Home Medications Allergies Coded Allergies: erythromycin base (Verified Allergy, Unknown, 07/13/19) fentanyl (Verified Allergy, Unknown, 07/13/19) tetracycline (Verified Allergy, Unknown, 07/13/19) Patient Home Medication List Home Medication List Reviewed: Yes Apixaban (Eliquis) 5 Mg Tablet, 5 MG PO BID Prescribed by: GÉNESIS FITZGERALD on 07/15/19 1209 Aspirin (Aspirin) 81 Mg Tab.chew, 81 MG PO DAILY, (Reported) Entered as Reported by: AALIYAH MCCORD on 07/15/19 1200 Fluconazole (Fluconazole) 200 Mg Tablet, 1 TAB PO 3xweekly, (Reported) Entered as Reported by: AALIYAH MCCORD on 07/15/19 1200 Levothyroxine Sodium (Synthroid) 137 Mcg Tablet, 137 MCG PO DAILY, (Reported) Entered as Reported by: AALIYAH MCCORD on 07/15/191199 Metoprolol Succinate (Metoprolol Succinate) 25 Mg Tab.er.24h, 25 MG PO BID, (Reported) Entered as Reported by: AALIYAH MCCORD on 07/15/191199 Simvastatin (Simvastatin) 20 Mg Tablet, 20 MG PO DAILY, (Reported) Entered as Reported by: AALIYAH MCCORD on 07/15/191199 Review of Systems Review of Systems Constitutional: No fever EENTM: No Blurred Vision Respiratory: Denies Cough Cardiovascular: Denies Chest Pain; Palpitations Gastrointestinal: Denies Abdominal Pain Genitourinary: Denies Burning Musculoskeletal: no symptoms reported Skin: no symptoms reported Psychiatric/Neurological: No Symptoms Reported Endocrine: No Symptoms Reported Hematologic/Lymphatic: No Symptoms Reported All Other Systems Reviewed Negative Unless Noted: Yes Past [id number]-[id number] Hx Patient Social History Tobacco Use?: No Use of E-Cig and/or Vaping dev: No Substance use?: No Alcohol Use?: No Pt feels they are or have been: No Immunizations Up To Date First/Initial COVID19 Vaccinat: 2020 Second COVID19 Vaccination Carlos: 2020 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: [employer] Seasonal Allergies Seasonal Allergies: No Past Medical History Surgery/Hospitalization HX: GALLBLADDER AFIB ABLATION Surgeries: Yes (ablation; ) Section, Gallbladder Respiratory: No Cardiac: Yes Atrial Fibrillation, High Cholesterol, Hypotension Neurological: No Genitourinary: No Gastrointestinal: No Musculoskeletal: No Endocrine: Yes Hypothyroidsim HEENT: No Cancer: No Psychosocial: No Integumentary: No Blood Disorders: No Adverse Reaction/Blood Tranf: No Family Medical History Heart Disease Physical Exam Vital Signs Vital Signs - First Documented 04/22/22 09:45 Temp 35.7 Pulse 128 Resp 16 B/P (MAP) 123/65 (84) Pulse Ox 100 O2 Delivery Room Air Capillary Refill : Height, Weight, BMI Height: '" Weight: lbs. oz. kg; 119.42 BMI Method: General Appearance: No Apparent Distress, WD/WN HEENT: PERRL/EOMI, Normal ENT Inspection, Pharynx Normal Neck: Full Range of Motion, Normal Inspection, Non Tender, Supple Respiratory: Chest Non Tender, Lungs Clear, Normal Breath Sounds, No Accessory Muscle Use, No Respiratory Distress Cardiovascular: No Edema, Normal Peripheral Pulses, Irregularly Irregular, Tachycardia Gastrointestinal: Normal Bowel Sounds, Non Tender, Soft; No Guarding Extremity: Normal Capillary Refill, Normal Inspection, Normal Range of Motion, Non Tender, No Calf Tenderness, No Pedal Edema Neurologic/Psychiatric: Alert, No Motor/Sensory Deficits, Normal Mood/Affect Skin: Normal Color, Warm/Dry Lymphatic: No Adenopathy Progress/Results/Core Measures Results/Orders Lab Results Laboratory Tests Test 04/22/22 10:04 Range/Units White Blood Count 9.6 4.3-11.0 10^3/uL Red Blood Count 4.75 3.80-5.11 10^6/uL Hemoglobin 14.7 11.5-16.0 g/dL Hematocrit 44 35-52 % Mean Corpuscular Volume 94 80-99 fL Mean Corpuscular Hemoglobin 31 25-34 pg Mean Corpuscular Hemoglobin Concent 33 32-36 g/dL Red Cell Distribution Width 12.7 10.0-14.5 % Platelet Count 227 130-400 10^3/uL Mean Platelet Volume 10.9 9.0-12.2 fL Immature Granulocyte % (Auto) 0 % Neutrophils (%) (Auto) 61 42-75 % Lymphocytes (%) (Auto) 30 12-44 % Monocytes (%) (Auto) 6 0-12 % Eosinophils (%) (Auto) 2 0-10 % Basophils (%) (Auto) 1 0-10 % Neutrophils # (Auto) 5.8 1.8-7.8 10^3/uL Lymphocytes # (Auto) 2.9 1.0-4.0 10^3/uL Monocytes # (Auto) 0.6 0.0-1.0 10^3/uL Eosinophils # (Auto) 0.2 0.0-0.3 10^3/uL Basophils # (Auto) 0.1 0.0-0.1 10^3/uL Immature Granulocyte # (Auto) 0.0 0.0-0.1 10^3/uL Prothrombin Time 12.6 12.2-14.7 SEC INR Comment 0.9 0.8-1.4 Activated Partial Thromboplast Time 30 24-35 SEC Sodium Level 138 135-145 MMOL/L Potassium Level 4.5 3.6-5.0 MMOL/L Chloride Level 101 98-107 MMOL/L Carbon Dioxide Level 27 21-32 MMOL/L Anion Gap 10 5-14 MMOL/L Blood Urea Nitrogen 21 H 7-18 MG/DL Creatinine 1.02 0.60-1.30 MG/DL Estimat Glomerular Filtration Rate 62 BUN/Creatinine Ratio 21 Glucose Level 109 H 70-105 MG/DL Calcium Level 9.6 8.5-10.1 MG/DL Corrected Calcium 9.4 8.5-10.1 MG/DL Magnesium Level 2.0 1.6-2.4 MG/DL Total Bilirubin 0.6 0.1-1.0 MG/DL Aspartate Amino Transf (AST/SGOT) 28 5-34 U/L Alanine Aminotransferase (ALT/SGPT) 23 0-55 U/L Alkaline Phosphatase 93 40-136 U/L Troponin I < 0.30 <0.30 NG/ML Pro-B-Type Natriuretic Peptide 1201.0 H <125.0 PG/ML Total Protein 6.9 6.4-8.2 GM/DL Albumin 4.3 3.2-4.5 GM/DL Lipase 41 8-78 U/L My Orders Orders - LEESA PEREZ MD Cbc With Automated Diff (04/22/22 10:05) Magnesium (04/22/22 10:05) Chest 1 View Ap/Pa Only (04/22/22 10:05) Ekg Tracing (04/22/22 10:05) Comprehensive Metabolic Panel (04/22/22 10:05) Protime With Inr (04/22/22 10:05) Partial Thromboplastin Time (04/22/22 10:05) O2 (04/22/22 10:05) Monitor-Rhythm Ecg Trace Only (04/22/22 10:05) Aspirin Chewable Tablet (Baby Aspirin Ch (04/22/22 10:15) Ed Iv/Invasive Line Start (04/22/22 10:05) Lipase (04/22/22 10:05) Troponin I Fs (04/22/22 10:05) Probnp Fs (04/22/22 10:05) Enoxaparin Injection (Lovenox Injection) (04/22/22 10:15) Ns Iv 1000 Ml (Sodium Chloride 0.9%) (04/22/22 10:15) Metoprolol Tartrate Injection (Lopressor (04/22/22 10:15) Diltiazem Drip Pre-Mix (Cardizem Drip Pr (04/22/22 10:27) Azithromycin Tablet (Zithromax Tablet) (04/22/22 10:30) Medications Given in ED Current Medications Medications Dose Ordered Sig/Reuben Route Start Time Stop Time Status Last Admin Dose Admin Aspirin 243 mg ONCE ONCE PO 04/22/22 10:15 04/22/22 10:16 DC 04/22/22 10:18 243 MG Azithromycin 500 mg ONCE ONCE PO 04/22/22 10:30 04/22/22 10:34 DC 04/22/22 10:38 500 MG Enoxaparin Sodium 100 mg ONCE ONCE SC 04/22/22 10:15 04/22/22 10:16 DC 04/22/22 10:18 100 MG Metoprolol Tartrate 5 mg ONCE ONCE IV 04/22/22 10:15 04/22/22 10:16 DC 04/22/22 10:17 5 MG Vital Signs/I&O 04/22/22 09:45 Temp 35.7 Pulse 128 Resp 16 B/P (MAP) 123/65 (84) Pulse Ox 100 O2 Delivery Room Air Progress Progress Note : Progress Note 61-year-old female with above history coming in due to concerns with A. fib with RVR with hypotension. Patient's heart rate is very labile, goes between the 90s to 130s. When it is in the 130s, blood pressure drops significantly with systolics as low as the high 60s. He quickly comes back up when her heart rate is lower. An IV was placed and she was given a bolus of IV fluids. Started on a diltiazem drip at low-dose to see if we can better control her heart rate which helps her blood pressure. She was also given 1 mg/kg of Lovenox. Chest x-ray with potential left upper lobe infiltrate that is developing. Went ahead and gave her azithromycin to cover her at this time. Electrolytes unremarkable and troponin is negative. EKG shows A. fib with RVR but no acute ischemic changes. I contacted Dr. Valverde, the machine adjuster helper on-call and discussed the case with him. I also contacted Dr. Diaz who will be admitting the patient to the intensive care unit for further evaluation and management. I then contacted the ICU physician to give handoff as well. Initial ECG Impression Date: Apr 22, 2022 Initial ECG Impression Time: 10:21 Initial ECG Rate: 107 Initial ECG Rhythm: A Fib/Flutter Comment Narrow QRS, normal axis, no significant ST changes or T wave abnormalities Diagnostic Imaging Diagonstic Imaging: Xray Plain Films/CT/US/NM/MRI: chest Comments [facility] [place], [place] NAME: CATRINA MCKAY [facility] REC#: [id number] PT STATUS: REG ER : 1960 PHYSICIAN: LEESA PEREZ MD ADMIT DATE: 04/22/22/ER FS Draft Date of Exam:04/22/22 CHEST 1 VIEW AP/PA ONLY Indication: Shortness of breath. Time of Exam: 10:15 AM Correlation is made with prior chest from 07/13/2019. The heart size normal. There is some questionable minimal density in the left upper lung field. Otherwise, the lung vidal are clear. There is no effusion or pneumothorax. IMPRESSION: Questionable minimal left upper lobe infiltrate. Dictated on workstation # [id number] Dict: 04/22/22 1021 Trans: 04/22/22 1023 [facility] [id number] Interpreted by: YOLANDE SPRAGUE MD Electronically signed by: Departure Impression Primary Impression: Atrial fibrillation with RVR Additional Impression: Transient hypotension Disposition: 30 STILL A PATIENT Condition: Stable Admissions Decision to Admit Reason: Admit from ER (General) Decision to Admit/Date: Apr 22, 2022 Time/Decision to Admit Time: 10:35 Transfer Method of Transfer: EMS Departure-Patient Inst. Referrals: ANUP SANON DO (PCP) Primary Care Physician LEESA PEREZ MD Apr 22, 2022 10:10
[2022-04-22] MEDS ORDERED: NS IV 1000 ML 1,000 ML IV SCH (10:15)
[2022-04-22] MEDS ORDERED: meTOprolol 5 MG/5 ML (LOPRESSOR) VIAL IV ONE (10:15)
[2022-04-22] MEDS ORDERED: ENOXAPARIN 100 MG/1 ML (LOVENOX) SYR SC ONE (10:15)
[2022-04-22] MEDS ORDERED: ASPIRIN 81 MG CHEW (CHILDREN'S ASA) PO ONE (10:15)
[2022-04-22 10:17] LABS: BASOPHILS # (AUTO) 0.1 10^3/uL (0.0-0.1); BASOPHILS % (AUTO) 1 % (0-10); EOSINOPHILS # (AUTO) 0.2 10^3/uL (0.0-0.3); EOSINOPHILS % (AUTO) 2 % (0-10); HEMATOCRIT 44 % (35-52); HEMOGLOBIN 14.7 g/dL (11.5-16.0); LYMPHOCYTES # (AUTO) 2.9 10^3/uL (1.0-4.0); LYMPHOCYTES % (AUTO) 30 % (12-44); MEAN CORPUSCULAR HEMOGLOBIN 31 pg (25-34); MEAN CORPUSCULAR HGB CONC 33 g/dL (32-36); MEAN CORPUSCULAR VOLUME 94 fL (80-99); MEAN PLATELET VOLUME 10.9 fL (9.0-12.2); MONOCYTES # (AUTO) 0.6 10^3/uL (0.0-1.0); MONOCYTES % (AUTO) 6 % (0-12); NEUTROPHILS # (AUTO) 5.8 10^3/uL (1.8-7.8); NEUTROPHILS % (AUTO) 61 % (42-75); PLATELET COUNT 227 10^3/uL (130-400); WHITE BLOOD COUNT 9.6 10^3/uL (4.3-11.0)
--- NOTE | 2022-04-22 10:23 | Diagnostic Imaging Report ---
Indication: Shortness of breath. Time of Exam: 10:15 AM Correlation is made with prior chest from 07/13/2019. The heart size normal. There is some questionable minimal density in the left upper lung field. Otherwise, the lung vidal are clear. There is no effusion or pneumothorax. IMPRESSION: Questionable minimal left upper lobe infiltrate. Dictated by: Dictated on workstation # [id number]
[2022-04-22] MEDS ORDERED: dilTIAZem DRIP PRE-MIX 125 ML IV STA (10:27)
[2022-04-22] MEDS ORDERED: AZITHROMYCIN 250 MG TAB (ZITHROMAX) PO ONE (10:30)
[2022-04-22 10:32] LABS: ALBUMIN 4.3 GM/DL (3.2-4.5); BILIRUBIN,TOTAL 0.6 MG/DL (0.1-1.0); CALCIUM 9.6 MG/DL (8.5-10.1); CREATININE SERUM 1.02 MG/DL (0.60-1.30); POTASSIUM 4.5 MMOL/L (3.6-5.0); TOTAL PROTEIN 6.9 GM/DL (6.4-8.2)
[2022-04-22 10:33] LABS: INR 0.9 (0.8-1.4); PROTHROMBIN TIME PATIENT 12.6 SEC (12.2-14.7)
[2022-04-22] MEDS ORDERED: ONDANSETRON 4 MG/2 ML (SDV) Z0FRAN IV PRN ×2 (10:45→12:00)
[2022-04-22] MEDS ORDERED: ACETAMINOPHEN 325 MG TABLET PO PRN ×2 (10:45→12:00)
[2022-04-22] MEDS ORDERED: ONDANSETRON 4 MG (ZOFRAN) ORAL DISSOLVE TAB PO PRN ×2 (10:45→12:00)
[2022-04-22] MEDS ORDERED: ANTACID SUSP 30 ML UDC (MYLANTA) PO PRN ×2 (10:45→12:00)
[2022-04-22] MEDS ORDERED: dilTIAZem DRIP PRE-MIX 125 ML IV SCH ×2 (10:45→12:00)
[2022-04-22] MEDS ORDERED: diphenhydrAMINE 25 MG TAB (BENADRYL) PO PRN ×2 (10:45→12:00)
[2022-04-22] MEDS ORDERED: NS IV 500 ML 500 ML IV PRN ×2 (10:45→12:00)
[2022-04-22] MEDS ORDERED: polyethylene glycoL POWDER 17 GM (MIRALAX) PACK PO PRN ×2 (10:45→12:00)
[2022-04-22] MEDS ORDERED: ENOXAPARIN 100 MG/1 ML (LOVENOX) SYR SC SCH ×3 (10:45→22:00)
[2022-04-22] MEDS ORDERED: BISACODYL 10 MG SUPP (DULCOLAX) PR PRN ×2 (10:45→12:00)
[2022-04-22] MEDS ORDERED: MELATONIN 3 MG TABLET PO PRN ×2 (10:45→12:00)
[2022-04-22] MEDS ORDERED: diphenhydrAMINE 50 MG/ML INJ (BENADRYL) IVP PRN ×2 (10:45→12:00)
[2022-04-22 11:18] VITALS: BP 98/62
[2022-04-22] MEDS ORDERED: MULT-1136 PO (14:59)
[2022-04-22] MEDS ORDERED: THYR30TA2 PO (14:59)
[2022-04-22] MEDS ORDERED: MAGN250T13 PO (14:59)
[2022-04-22] MEDS ORDERED: TIZA-186 PO (14:59)
[2022-04-22] MEDS ORDERED: CETI10TA17 PO (14:59)
[2022-04-22] MEDS ORDERED: CHOL-34 PO (14:59)
--- NOTE | 2022-04-22 17:03 | Consultation-Cardiology ---
HPI-Cardiology Cardiology Consultation: Date of Consultation 04/22/22 Date of Admission 04/22/22 Attending Physician Dmitriy Atkinson DO Admitting Physician Admitting Physician: Mahogany Diaz MD Attending Physician: Mahogany Diaz MD Consulting Physician CARIE PONCE JR, MD HPI: Time Seen by a Provider: 16:55 Chief Complaint: REASON FOR CONSULTATION: Paroxysmal atrial fibrillation. I had the pleasure of seeing Ashleigh in the intensive care unit at [facility] in [place], [place] today. She has a history of paroxysmal atrial fibrillation and underwent an ablation in [place] many years ago. She believes that the ablation was successful and for several years she did well without any recurrent atrial fibrillation. However, over the past couple of years she has been developing recurrent episodes of palpitations with the sensation of a fast fluttering in her chest. She has been maintained on metoprolol succinate that seems to have been keeping the palpitations under control. She has been following with a skating carhop from [facility]. Then over the past few months she has been having intermittent lightheaded spells. She denies any syncope. The lightheaded spells would occur at rest, often while she was sitting. She did not necessarily feel any palpitations when this would occur. Then over the past few days to weeks, she has been having pain in her right leg. She had undergone an MRI of the spine that showed some bulging disks. She actually saw a neurosurgeon in [place] who was planning on starting with a steroid injection to see if this would help with pain control. Today she was again having lightheaded spells but also pain in her right leg. She was concerned that she could have a blood clot in her leg so she went to the [facility] urgent care and [place]. They then sent her over to the emergency room in [place] and she was found to be in atrial fibrillation with a rapid ventricular rate. She was given 1 mg of intravenous metoprolol but then became hypotensive. She was then transferred to our hospital for further treatment and evaluation. By report, at 1 point in the outside emergency room she had converted to sinus rhythm. However, since she has been here she has been in atrial fibrillation and at times possibly atrial flutter. She denies chest discomfort, dyspnea, paroxysmal nocturnal dyspnea, orthopnea, or syncope. She has chronic, intermittent left ankle edema but she believes this is from a previous fracture. Because of the atrial fibrillation, a cardiology consultation was requested. The patient also notes that approximately 3 months ago her Synthroid was changed over to [place] Thyroid and she has not had a TSH level rechecked since that change. Certain portions of this document may have been dictated utilizing voice recognition technology. Inherent to this technology, typographical and grammatical errors may exist. As much as I am diligent to identify and correct these mistakes, some errors may remain in the document. Review of Systems-Cardiology Review of Systems Other comments Review of 10 organ systems is as per the history of present illness, otherwise negative. All Other Systems Reviewed Negative Unless Noted: Yes [id number] Hx Patient Social History Smoking Status: Former Smoker 2nd Hand Smoke Exposure: No Have you traveled recently?: No Alcohol Use?: No Pt feels they are or have been: No Tobacco type used: Cigarettes Past Medical History PMH As described under Assessment. Family Medical History Family Medical History: Her father had a heart attack in his 50s. Allergies and Home Medications Allergies Coded Allergies: erythromycin base (Verified Allergy, Unknown, 07/13/19) fentanyl (Verified Allergy, Unknown, 07/13/19) tetracycline (Verified Allergy, Unknown, 07/13/19) Patient Home Medication List Home Medication List Reviewed: Yes Aspirin (Aspirin) 81 Mg Tab.chew, 81 MG PO DAILY, (Reported) Entered as Reported by: AALIYAH MCCORD on 07/15/191199 Last Action: Reviewed Cetirizine HCl (Cetirizine HCl) 10 Mg Tablet, 10 MG PO DAILY, (Reported) Entered as Reported by: ANNIE ZABALA on 04/22/221458 Last Action: Reviewed Cholecalciferol (Vitamin D3) (Vitamin D3) 25 Mcg (1000 Unit) Tablet, 50 MCG PO 1700, (Reported) Entered as Reported by: ANNIE ZABALA on 04/22/221458 Last Action: Reviewed Magnesium Oxide (Magnesium) 250 Mg Tablet, 250 MG PO 1700, (Reported) Entered as Reported by: ANNIE ZABALA on 04/22/221458 Last Action: Reviewed Metoprolol Succinate (Metoprolol Succinate) 25 Mg Tab.er.24h, 12.5 MG PO BID, (Reported) Entered as Reported by: AALIYAH MCCORD on 07/15/191199 Last Action: Reviewed Multivitamin (Multivitamin) 1 Each Tablet, 1 EACH PO 1700, (Reported) Entered as Reported by: ANNIE ZABALA on 04/22/221458 Last Action: Reviewed Thyroid,Pork ([place] Thyroid) 30 Mg Tablet, 30 MG PO DAILY, (Reported) Entered as Reported by: ANNIE ZABALA on 04/22/221458 Last Action: Reviewed Tizanidine HCl (Tizanidine HCl) 4 Mg Tablet, 4 MG PO HS, (Reported) Entered as Reported by: ANNIE ZABALA on 04/22/221458 Last Action: Reviewed Discontinued Medications Apixaban (Eliquis) 5 Mg Tablet, 5 MG PO BID Discontinued Reason: No Longer Taking Prescribed by: GÉNESIS FITZGERALD on 07/15/19 120 Last Action: Discontinued Fluconazole (Fluconazole) 200 Mg Tablet, 1 TAB PO 3xweekly, (Reported) Discontinued Reason: No Longer Taking Entered as Reported by: AALIYAH MCCORD on 07/15/191199 Last Action: Discontinued Levothyroxine Sodium (Synthroid) 137 Mcg Tablet, 137 MCG PO DAILY, (Reported) Discontinued Reason: No Longer Taking Entered as Reported by: AALIYAH MCCORD on 07/15/191199 Last Action: Discontinued Simvastatin (Simvastatin) 20 Mg Tablet, 20 MG PO DAILY, (Reported) Discontinued Reason: No Longer Taking Entered as Reported by: AALIYAH MCCORD on 07/15/191199 Last Action: Discontinued Exam Vital Signs Vital Signs Date Time Temp Pulse Resp B/P (MAP) Pulse Ox O2 Delivery O2 Flow Rate FiO2 04/22/22 16:00 86 98/73 98 Room Air 04/22/22 13:00 10 04/22/22 11:18 36.2 Physical Exam General: Alert. No acute distress. Well nourished and appears stated age. She is morbidly obese. Eye: Extraocular movements are intact. Conjunctivae are clear. There are no xanthelasma. HENT: Normocephalic. Atraumatic. Carotid pulsations 2/2 without bruits. Neck: Jugular venous pressure does not appear elevated. No thyromegaly appreciated. Respiratory: Lungs are clear to auscultation. Respirations are non-labored. Breath sounds are equal. Symmetrical chest wall expansion. Cardiovascular: Normal rate. Irregular rhythm. Distant S1/S2. No murmur. No gallop. Point of maximal impulse is not appear displaced. Good pulses equal in all extremities. No edema. Gastrointestinal: Soft. Normal bowel sounds. Skin: Skin turgor is normal. There is no pallor. Musculoskeletal: No kyphosis or scoliosis appreciated. Neurologic: Alert and oriented to person, place, time. Cranial nerves 3-12 appear grossly intact. The patient has good motor tone strength in the upper and lower extremities bilaterally. Psychiatric: Cooperative. Appropriate mood & affect. Labs Laboratory Tests Test 04/22/22 10:04 Range/Units White Blood Count 9.6 4.3-11.0 10^3/uL Red Blood Count 4.75 3.80-5.11 10^6/uL Hemoglobin 14.7 11.5-16.0 g/dL Hematocrit 44 35-52 % Mean Corpuscular Volume 94 80-99 fL Mean Corpuscular Hemoglobin 31 25-34 pg Mean Corpuscular Hemoglobin Concent 33 32-36 g/dL Red Cell Distribution Width 12.7 10.0-14.5 % Platelet Count 227 130-400 10^3/uL Mean Platelet Volume 10.9 9.0-12.2 fL Immature Granulocyte % (Auto) 0 % Neutrophils (%) (Auto) 61 42-75 % Lymphocytes (%) (Auto) 30 12-44 % Monocytes (%) (Auto) 6 0-12 % Eosinophils (%) (Auto) 2 0-10 % Basophils (%) (Auto) 1 0-10 % Neutrophils # (Auto) 5.8 1.8-7.8 10^3/uL Lymphocytes # (Auto) 2.9 1.0-4.0 10^3/uL Monocytes # (Auto) 0.6 0.0-1.0 10^3/uL Eosinophils # (Auto) 0.2 0.0-0.3 10^3/uL Basophils # (Auto) 0.1 0.0-0.1 10^3/uL Immature Granulocyte # (Auto) 0.0 0.0-0.1 10^3/uL Prothrombin Time 12.6 12.2-14.7 SEC INR Comment 0.9 0.8-1.4 Activated Partial Thromboplast Time 30 24-35 SEC Sodium Level 138 135-145 MMOL/L Potassium Level 4.5 3.6-5.0 MMOL/L Chloride Level 101 98-107 MMOL/L Carbon Dioxide Level 27 21-32 MMOL/L Anion Gap 10 5-14 MMOL/L Blood Urea Nitrogen 21 H 7-18 MG/DL Creatinine 1.02 0.60-1.30 MG/DL Estimat Glomerular Filtration Rate 62 BUN/Creatinine Ratio 21 Glucose Level 109 H 70-105 MG/DL Calcium Level 9.6 8.5-10.1 MG/DL Corrected Calcium 9.4 8.5-10.1 MG/DL Magnesium Level 2.0 1.6-2.4 MG/DL Total Bilirubin 0.6 0.1-1.0 MG/DL Aspartate Amino Transf (AST/SGOT) 28 5-34 U/L Alanine Aminotransferase (ALT/SGPT) 23 0-55 U/L Alkaline Phosphatase 93 40-136 U/L Troponin I < 0.30 <0.30 NG/ML Pro-B-Type Natriuretic Peptide 1201.0 H <125.0 PG/ML Total Protein 6.9 6.4-8.2 GM/DL Albumin 4.3 3.2-4.5 GM/DL Lipase 41 8-78 U/L ECG Impression ECG Comment Electrocardiogram from [place] emergency room showed atrial fibrillation with a ventricular rate of 107 bpm with diffusely low voltages and poor R wave progression. Diagnosis/Problems Diagnosis/Problems (1) Paroxysmal atrial fibrillation Assessment & Plan: She has recurrent atrial fibrillation of unknown duration. Her [id number] score is 1 for female sex. Typically, oral anticoagulation would be optional with this [id number] score. However, she is having both tachycardia and bradycardia with the atrial fibrillation. As such, she may benefit from a cardioversion. I will start her on apixaban 5 mg twice daily. If she does not convert to sinus rhythm overnight, then we may need to consider a transesophageal echocardiogram and cardioversion. I would prefer not to give her any AV luba blocking agents. I also ordered a TSH level to be added to the previous blood sample. She had her thyroid medication changed 3 months ago and no repeat thyroid function studies have been performed since that time. (2) Complete heart block Assessment & Plan: She has been having intermittent pauses up to 6 seconds. I will stop her metoprolol. I would like to have all AV luba blocking medications on hold so that we can see if she will have any signs of AV luba recovery. There is no indication for temporary or permanent pacemaker at this point in time. (3) Hypotension Assessment & Plan: She has had some transient hypotension while here in the hospital. She was given intravenous fluids at the outside emergency room and her blood pressure has improved. I recommend holding the beta-iam for the time being. (4) Obstructive sleep apnea of adult Assessment & Plan: She needs to be compliant with her CPAP. This may help reduce risk of recurrent atrial fibrillation. (5) Morbid obesity Assessment & Plan: She needs to work on weight loss. There is good data that shows 20 pounds of weight loss will help reduce the risk of recurrent atrial fibrillation. CARIE PONCE JR, MD Apr 22, 2022 17:02
[2022-04-22] MEDS ORDERED: DOCUSATE SODIUM 100 MG (COLACE) CAP PO SCH (21:00)
[2022-04-22] MEDS: DOCUSATE SODIUM 100 MG (COLACE) CAP PO SCH (21:03)
[2022-04-22] MEDS: APIXABAN 5 MG (ELIQUIS) TABLET PO SCH (21:03)
[2022-04-23 05:08] LABS: HEMATOCRIT 44 % (35-52); HEMOGLOBIN 14.3 g/dL (11.5-16.0); MEAN CORPUSCULAR HEMOGLOBIN 31 pg (25-34); MEAN CORPUSCULAR HGB CONC 33 g/dL (32-36); MEAN CORPUSCULAR VOLUME 95 fL (80-99); MEAN PLATELET VOLUME 11.3 fL (9.0-12.2); PLATELET COUNT 225 10^3/uL (130-400); WHITE BLOOD COUNT 9.7 10^3/uL (4.3-11.0)
[2022-04-23 05:21] LABS: POTASSIUM 4.2 MMOL/L (3.6-5.0)
[2022-04-23 05:22] LABS: CALCIUM 9.1 MG/DL (8.5-10.1)
[2022-04-23 05:25] LABS: TRIGLYCERIDES 83 MG/DL (<150); VLDL CHOLESTEROL 17 MG/DL (5-40)
[2022-04-23 05:29] LABS: MAGNESIUM 2.1 MG/DL (1.6-2.4)
[2022-04-23 05:30] LABS: CHOLESTEROL 181 MG/DL (< 200); HDL CHOLESTEROL 54 MG/DL (40-60)
[2022-04-23] MEDS ORDERED: POTASSIUM CL 10MEQ/50ML IVPB 50 ML IV SCH ×2 (06:00)
[2022-04-23] MEDS ORDERED: MAGNESIUM 1 GM/100 ML IVPB 100 ML IV SCH ×2 (06:00)
[2022-04-23] MEDS ORDERED: KCL 20 MEQ TAB (K-DUR) PO SCH ×2 (06:00)
[2022-04-23] MEDS: APIXABAN 5 MG (ELIQUIS) TABLET PO SCH (08:16)
[2022-04-23] MEDS: DOCUSATE SODIUM 100 MG (COLACE) CAP PO SCH (08:17)
[2022-04-23] MEDS ORDERED: LEVOTHYROXINE 100 MCG (LEVOTHROID) TAB PO NR (08:30)
--- NOTE | 2022-04-23 08:59 | Cardiology Progress Note ---
Progress Note-Cardiology Events since last exam Date Seen by Provider: Apr 23, 2022 Time Seen by Provider: 08:55 Events since last exam I am following her due to paroxysmal atrial fibrillation. Last evening she converted back to sinus bradycardia. She feels much better this morning. She denies chest pain, dyspnea, palpitations, syncope, or ankle edema. Certain portions of this document may have been dictated utilizing voice recognition technology. Inherent to this technology, typographical and grammati augie errors may exist. As much as I am diligent to identify and correct these mistakes, some errors may remain in the document. Vitals Last set of Vitals Signs Vital Signs 04/23/22 08:00 Pulse 57 Resp 10 B/P (MAP) 126/97 Pulse Ox 97 O2 Delivery Room Air Labs Labs Laboratory Tests 04/22/22 10:04 04/23/22 04:20 04/23/22 04:24 Exam Vital Signs Vital Signs Date Time Temp Pulse Resp B/P (MAP) Pulse Ox O2 Delivery O2 Flow Rate FiO2 04/23/22 08:00 57 10 126/97 97 Room Air 04/23/22 04:15 36.2 Physical Exam General: Alert. No acute distress. She is obese. Eye: No xanthelasma. HENT: Normocephalic. Neck: Jugular venous pressure does not appear elevated. Respiratory: Lungs are clear to auscultation. Respirations are non-labored. Breath sounds are equal. Symmetrical chest wall expansion. Cardiovascular: Bradycardia. Regular rhythm. No murmur. No gallop. No edema. Gastrointestinal: Soft. Normal bowel sounds. Skin: Warm. Dry. Neurologic: Alert and oriented to person, place, time. Cranial nerves 3-11 grossly intact. Psychiatric: Cooperative. Appropriate mood & affect. Labs Laboratory Tests Test 04/22/22 10:04 04/22/22 17:05 04/23/22 04:20 04/23/22 04:24 Range/Units White Blood Count 9.6 9.7 4.3-11.0 10^3/uL Red Blood Count 4.75 4.60 3.80-5.11 10^6/uL Hemoglobin 14.7 14.3 11.5-16.0 g/dL Hematocrit 44 44 35-52 % Mean Corpuscular Volume 94 95 80-99 fL Mean Corpuscular Hemoglobin 31 31 25-34 pg Mean Corpuscular Hemoglobin Concent 33 33 32-36 g/dL Red Cell Distribution Width 12.7 12.8 10.0-14.5 % Platelet Count 227 225 130-400 10^3/uL Mean Platelet Volume 10.9 11.3 9.0-12.2 fL Immature Granulocyte % (Auto) 0 % Neutrophils (%) (Auto) 61 42-75 % Lymphocytes (%) (Auto) 30 12-44 % Monocytes (%) (Auto) 6 0-12 % Eosinophils (%) (Auto) 2 0-10 % Basophils (%) (Auto) 1 0-10 % Neutrophils # (Auto) 5.8 1.8-7.8 10^3/uL Lymphocytes # (Auto) 2.9 1.0-4.0 10^3/uL Monocytes # (Auto) 0.6 0.0-1.0 10^3/uL Eosinophils # (Auto) 0.2 0.0-0.3 10^3/uL Basophils # (Auto) 0.1 0.0-0.1 10^3/uL Immature Granulocyte # (Auto) 0.0 0.0-0.1 10^3/uL Prothrombin Time 12.6 12.2-14.7 SEC INR Comment 0.9 0.8-1.4 Activated Partial Thromboplast Time 30 24-35 SEC Sodium Level 138 141 135-145 MMOL/L Potassium Level 4.5 4.2 3.6-5.0 MMOL/L Chloride Level 101 109 H 98-107 MMOL/L Carbon Dioxide Level 27 22 21-32 MMOL/L Anion Gap 10 10 5-14 MMOL/L Blood Urea Nitrogen 21 H 22 H 7-18 MG/DL Creatinine 1.02 1.00 0.60-1.30 MG/DL Estimat Glomerular Filtration Rate 62 64 BUN/Creatinine Ratio 21 22 Glucose Level 109 H 94 70-105 MG/DL Calcium Level 9.6 9.1 8.5-10.1 MG/DL Corrected Calcium 9.4 8.5-10.1 MG/DL Magnesium Level 2.0 2.1 1.6-2.4 MG/DL Total Bilirubin 0.6 0.1-1.0 MG/DL Aspartate Amino Transf (AST/SGOT) 28 5-34 U/L Alanine Aminotransferase (ALT/SGPT) 23 0-55 U/L Alkaline Phosphatase 93 40-136 U/L Troponin I < 0.30 <0.30 NG/ML Pro-B-Type Natriuretic Peptide 1201.0 H <125.0 PG/ML Total Protein 6.9 6.4-8.2 GM/DL Albumin 4.3 3.2-4.5 GM/DL Lipase 41 8-78 U/L D-Dimer < 0.20 0.00-0.49 UG/ML Thyroid Stimulating Hormone (TSH) 82.59 H 0.35-4.94 UIU/ML Free Thyroxine 0.45 L 0.70-1.48 NG/DL Triglycerides Level 83 <150 MG/DL Cholesterol Level 181 < 200 MG/DL LDL Cholesterol Direct 118 1-129 MG/DL VLDL Cholesterol 17 5-40 MG/DL HDL Cholesterol 54 40-60 MG/DL Diagnosis/Problems Diagnosis/Problems (1) Paroxysmal atrial fibrillation Assessment & Plan: She had recurrent atrial fibrillation of unknown duration. Her [id number] score is 1 for female sex. Typically, oral anticoagulation would be optional with this [id number] score. She has now converted to sinus bradycardia with no intervention. I recommend she resume her low-dose metoprolol succinate and for the time being, I would recommend she continue on apixaban 5 mg twice daily since she may be going in and out of atrial fibrillation. From a cardiac standpoint, she can be discharged home. I recommended she contact the cardiology office at [facility] and get an appointment to be seen for follow-up as soon as possible. I suspect the atrial fibrillation was brought on by her hypothyroidism. I do not see any indication for antiarrhythmic drug at this time. (2) Complete heart block Assessment & Plan: She had been having intermittent pauses up to 6 seconds. Now that she is back in a sinus rhythm, the pauses have stopped. I will resume beta-iam as above. (3) Coronary artery disease without angina pectoris Assessment & Plan: She had a cardiac catheterization in 2019 here in [place] and this showed mild luminal irregularities. As such, in light of the coronary artery disease, she is not a good candidate for a type Ic antiarrhythmic drug if antiarrhythmic drug therapy is recommended in the future. (4) Hypotension Assessment & Plan: She had some transient hypotension while here in the hospital. She was given intravenous fluids and her blood pressure has improved. She will need to watch her blood pressure at home with the resumption of beta- iam. She did say that she has a history of hypertension in the past. (5) Obstructive sleep apnea of adult Assessment & Plan: She needs to be compliant with her CPAP. This may help reduce risk of recurrent atrial fibrillation. (6) Morbid obesity Assessment & Plan: She needs to work on weight loss. There is good data that shows 20 pounds of weight loss will help reduce the risk of recurrent atrial fibrillation. CARIE PONCE JR, MD Apr 23, 2022 08:59
[2022-04-23] MEDS ORDERED: LEVO137C4 PO (10:09)
[2022-04-23] MEDS ORDERED: APIX5TAB PO (10:09)
--- NOTE | 2022-04-23 21:02 | Discharge Summary ---
Discharge Summary Hospital Course Was the Problem List Reviewed?: Yes Problems/Dx: (1) Paroxysmal atrial fibrillation Status: Acute (2) Complete heart block Status: Acute (3) Coronary artery disease without angina pectoris Status: Chronic (4) Hypotension Status: Acute (5) Obstructive sleep apnea of adult Status: Chronic (6) Morbid obesity Status: Chronic (7) Hypothyroidism Status: Acute Hospital Course Date of Admission: Apr 22, 2022 at 12:33 Admission Diagnosis : AFib with RVR Family Physician/Provider: Dmitriy Atkinson DO Date of Discharge: 04/23/22 Discharge Diagnosis: AFib with RVR, hypothyroidism Hospital Course: Ashleigh Poole is a 61 year old female with PMH HTN, AFib, hypothyroidism, NAYELI, morbid obesity, who was admitted with AFib with RVR. She was started on IV diltiazem. She was having some hypotension when her heart rates would increase. She converted to sinus rhythm. Cardiology was consulted and assisted with her care. She was started on Eliquis. She was continued on Metoprolol. She was also found to have a significantly elevated TSH 82. She was transitioned from [place] Thyroid to Synthroid. She reported previously being on 125-137 mcg. She was restarted on Synthroid 137 mcg daily. She will need a repeat TSH in 6 weeks. She should follow up with her PCP in about a week. She should follow up with Cardiology as scheduled. She was discharged home in stable condition. Labs and Pending Lab Test: Laboratory Tests 04/23/22 04:20: Sodium Level 141, Potassium Level 4.2, Chloride Level 109H, Carbon Dioxide Level 22, Anion Gap 10, Blood Urea Nitrogen 22H, Creatinine 1.00, Estimat Glomerular Filtration Rate 64, BUN/Creatinine Ratio 22, Glucose Level 94, Calcium Level 9.1, Magnesium Level 2.1 04/23/22 04:24: White Blood Count 9.7, Red Blood Count 4.60, Hemoglobin 14.3, Hematocrit 44, Mean Corpuscular Volume 95, Mean Corpuscular Hemoglobin 31, Mean Corpuscular Hemoglobin Concent 33, Red Cell Distribution Width 12.8, Platelet Count 225, Mean Platelet Volume 11.3, Triglycerides Level 83, Cholesterol Level 181, LDL Cholesterol Direct 118, VLDL Cholesterol 17, HDL Cholesterol 54 Microbiology 04/22/22 MRSA Screen - Final, Complete MRSA not isolated Home Meds Active Levothyroxine (Levothyroxine Sodium) 137 Mcg Capsule 137 Mcg PO DAILY 30 Days Eliquis (Apixaban) 5 Mg Tablet 5 Mg PO BID 30 Days Reported Vitamin D3 (Cholecalciferol (Vitamin D3)) 25 Mcg (1000 Unit) Tablet 50 Mcg PO 1700 Multivitamin 1 Each Tablet 1 Each PO 1700 Magnesium (Magnesium Oxide) 250 Mg Tablet 250 Mg PO 1700 Cetirizine HCl 10 Mg Tablet 10 Mg PO DAILY Tizanidine HCl 4 Mg Tablet 4 Mg PO HS Metoprolol Succinate 25 Mg Tab.er.24h 12.5 Mg PO BID TAKES OF A 25MG TAB Aspirin 81 Mg Tab.chew 81 Mg PO DAILY Assessment/Pt Instructions See instructions Discharge Planning: >30 minutes discharge planning Discharge Instructions Discharge Diet: Low Sodium Diet Activity as Tolerated: Yes Consultations Cardiology Discharge Physical Examination Vital Signs Vital Signs Date Time Temp Pulse Resp B/P (MAP) Pulse Ox O2 Delivery O2 Flow Rate FiO2 04/23/22 11:00 70 105/68 Room Air 04/23/22 10:00 33 96 04/23/22 08:00 36.1 General Appearance: No Apparent Distress, Obese HEENT: PERRL/EOMI, Pharynx Normal Respiratory: Lungs Clear, Normal Breath Sounds, No Respiratory Distress Cardiovascular: Regular Rate, Rhythm, No Murmur Gastrointestinal: Normal Bowel Sounds, Non Tender, Soft Extremity: Normal Inspection, No Pedal Edema Skin: Normal Color, Warm/Dry Neurologic/Psychiatric: Alert, Normal Mood/Affect Allergies: Coded Allergies: erythromycin base (Verified Allergy, Unknown, 07/13/19) fentanyl (Verified Allergy, Unknown, 07/13/19) tetracycline (Verified Allergy, Unknown, 07/13/19) Copy Copies To 1: DMITRIY ATKINSON DO Discharge Summary Date of Admission Apr 22, 2022 at 12:33 Date of Discharge Apr 23, 2022 at 11:30 Discharge Date: Apr 23, 2022 Discharge Time: 11:30 Admission Diagnosis AFib with RVR Consults/Procedures Consulations Cardiology Discharge Diagnosis (1) Paroxysmal atrial fibrillation Status: Acute (2) Complete heart block Status: Acute (3) Coronary artery disease without angina pectoris Status: Chronic (4) Hypotension Status: Acute (5) Obstructive sleep apnea of adult Status: Chronic (6) Morbid obesity Status: Chronic ARMANDO ROBERTSON MD Apr 23, 2022 20:56
[2022-04-24] MEDS ORDERED: LEVOTHYROXINE 100 MCG (LEVOTHROID) TAB PO SCH (06:30)
== END 2022-04-23 10:07 | disposition home or self-care (01) ==
LOC: EDUNIT# 09:45 → ER FS 09:46 → UNDOADMOB 12:33 → ICU 12:33 → UNDODISOB 04-23 11:30
PROVIDERS: ADMIT Internal Medicine; ATTEND Internal Medicine
DX: I48.0 Paroxysmal atrial fibrillation (principal); I95.9 Hypotension, unspecified; E03.9 Hypothyroidism, unspecified; E66.01 Morbid (severe) obesity due to excess calories; G47.33 Obstructive sleep apnea (adult) (pediatric); I25.10 Atherosclerotic heart disease of native coronary artery without angina pectoris; I44.2 Atrioventricular block, complete; Z79.890 Hormone replacement therapy; Z79.01 Long term (current) use of anticoagulants; Z79.82 Long term (current) use of aspirin; Z79.899 Other long term (current) drug therapy; Z68.41 Body mass index [BMI] 40.0-44.9, adult
CPT/HCPCS: 36415; 71045; 80048; 80053; 80061; 83690; 83735 ×2; 83880; 84439; 84443; 84481; 84484; 85025; 85027; 85379; 85610; 85730; 87081; 93005 ×2; 93041; 93306; 99285; G0378; 96361; 96365; 96372; 96375